=== PATIENT | female | born 2000 | race Caucasian/White ===

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

== ENCOUNTER 2020-07-07 12:08 | Emergency (ER) | payer OTHER, SELFPAY ==
[~2020-07-07] VITALS: Ht 152.4 cm; Wt 74.8 kg
[2020-07-07 12:10] VITALS: Ht 152.4 cm; Wt 74.8 kg
[2020-07-07 12:50] VITALS: BP 123/82
== END 2020-07-07 12:50 | disposition home or self-care (01) ==
LOC: ED 12:08
DX: U07.1 COVID-19 (principal); R10.9 Unspecified abdominal pain; Z90.89 Acquired absence of other organs
CPT/HCPCS: U0003-CS